=== PATIENT | male | born 1960 | race Caucasian/White ===

== ENCOUNTER 2018-05-31 09:29 | Emergency (ER) | payer MEDICARE ==
[2018-05-31] MEDS ORDERED: PENICILLIN V POTASSIUM 500 MG TABLET PO ONE (09:42)
[2018-05-31] MEDS ORDERED: IBUPROFEN 800 MG TABLET PO ONE (09:42)
[2018-05-31] MEDS ORDERED: OXYCODONE-ACETAMINOPHEN 5-325 MG TABLET PO ONE (09:42)
--- NOTE | 2018-05-31 09:45 | ER Document Report ---
HPI - HPI Patient complains to provider of: dental pain Time Seen by Provider: 05/31/18 09:35 Onset: Other - 2 days Onset/Duration: Gradual Quality of pain: Achy Pain Level: 3 Context: Patient presents complaining of dental pain from a broken tooth for the past 2 days. Patient denies any drainage or fever from the area. Patient does not presently have a dentist. Associated Symptoms: denies: Fever Exacerbated by: Denies Relieved by: Denies Similar symptoms previously: Yes Recently seen / treated by doctor: No - ROS ROS below otherwise negative: Yes Systems Reviewed and Negative: Yes All other systems reviewed and negative - CONSTITUTIONAL Constitutional: DENIES: Fever, Chills - EENT Notes: dental pain - NEURO Neurology: DENIES: Headache - RESPIRATORY Respiratory: DENIES: Coughing - GASTROINTESTINAL Gastrointestinal: DENIES: Nausea, Patient vomiting - DERM Skin Color: Normal Skin Problems: None Past Medical History - General Information source: Patient - Social History Smoking Status: Current Every Day Smoker Smoking Education Provided: Yes Frequency of alcohol use: None Drug Abuse: None Occupation: none Family History: Reviewed & Not Pertinent - Medical History Medical History: Negative Surgical Hx: Negative Vertical Provider Document - CONSTITUTIONAL Agree With Documented VS: Yes Exam Limitations: No Limitations General Appearance: WD/WN, No Apparent Distress - HEENT HEENT: Atraumatic, Normocephalic. negative: Pharyngeal Exudate, Pharyngeal Te nderness, Pharyngeal Erythema, Tympanic Membrane Red Mouth Diagram: 1 - Dental fracture, no gingival swelling, patient with widespread dental decay, no abscess, no trismus, no sublingual or submental swelling - NECK Neck: Normal Inspection, Supple. negative: Lymphadenopathy-Left, Lymphadenopathy-Right - RESPIRATORY Respiratory: Breath Sounds Normal, No Respiratory Distress - CARDIOVASCULAR Cardiovascular: Regular Rate, Regular Rhythm, No Murmur - BACK Back: Normal Inspection - MUSCULOSKELETAL/EXTREMETIES Musculoskeletal/Extremeties: MAEW - NEURO Level of Consciousness: Awake, Alert, Appropriate Motor/Sensory: No Motor Deficit - DERM Integumentary: Warm, Dry, No Rash Discharge - Discharge Clinical Impression: Toothache Condition: Stable Disposition: HOME, SELF-CARE Instructions: Dentist, Penicillin V K ([facility]), Toothache ([facility]) Additional Instructions: Return immediately for any new or worsening symptoms Followup with your dental care provider, call today to make a followup appointment Prescriptions: Naproxen [Naprosyn 250 Nmg Tablet] 1 tab PO BID #14 tablet Penicillin V Potassium [Penicillin Vk 500 mg Tablet] 500 mg PO BID #20 tablet Tramadol HCl [Ultram 50 mg Tablet] 50 mg PO ASDIR PRN #15 tablet PRN Reason: Forms: Smoking Cessation Education Referrals: [facility] [Provider Group] - Follow up as needed
[2018-05-31 10:02] VITALS: BP 137/87
[2018-05-31] MEDS ORDERED: IBUPROFEN 600 MG TABLET ONE (10:02)
[2018-05-31] MEDS ORDERED: IBUPROFEN 800 MG TABLET ONE (10:06)
== END 2018-05-31 10:21 | disposition home or self-care (01) ==
LOC: ER 09:29
DX: K08.9 Disorder of teeth and supporting structures, unspecified (principal); F17.200 Nicotine dependence, unspecified, uncomplicated
CPT/HCPCS: 99283; A9270 ×3